=== PATIENT | male | born 2000 | race Hispanic/Latino ===

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

== ENCOUNTER 2023-02-09 07:02 | Emergency (ER) | payer OTHER, SELFPAY ==
[2023-02-09] MEDS ORDERED: Ibuprofen 200 MG TAB ONE (07:38)
[2023-02-09 08:38] LABS: SARS-CoV-2 NAA Rapid Test Not Detected (NotDetected)
== END 2023-02-09 09:05 | disposition home or self-care (01) ==
LOC: ERS 07:02
DX: B97.4 Respiratory syncytial virus as the cause of diseases classified elsewhere (principal); H66.93 Otitis media, unspecified, bilateral; H73.93 Unspecified disorder of tympanic membrane, bilateral; Z20.822 Contact with and (suspected) exposure to COVID-19
CPT/HCPCS: 71045; 87081; 87430

== ENCOUNTER 2024-11-21 17:57 | Emergency (ER) | payer MEDICARE, SELFPAY ==
[2024-11-21] MEDS ORDERED: Benzonatate 100 MG CAP ONE (19:49)
[2024-11-21] MEDS ORDERED: Ibuprofen 200 MG TAB ONE (19:49)
[2024-11-21] MEDS ORDERED: Acetaminophen 325 MG TAB ONE (19:49)
== END 2024-11-21 20:05 ==
LOC: ERS 17:57
DX: U07.1 COVID-19 (principal)
CPT/HCPCS: 87428; 99283